=== PATIENT | female | born 1945 | race Caucasian/White ===

== ENCOUNTER 2016-10-25 00:57 | Inpatient (IN) | payer OTHER ==
[~2016-10-25] VITALS: Ht 154.9 cm; Wt 100.3 kg
[2016-10-25 02:04] LABS: EOSINOPHIL (%) 2.1 % (0-5); EOSINOPHIL COUNT 0.2 K/uL (0-0.3); HEMATOCRIT 38.8 % (36.0-46.0); IMMATURE GRANULOCYTE (%) 0.8 % (0.0-0.7); IMMATURE GRANULOCYTE COUNT 0.1 K/uL; INSTRUMENT ABS NEUTROPHIL CT 7.2 K/uL; MCH 27.2 PG (29.0-34.0); MCHC 32.2 G/DL (30.0-36.0); MCV 84.5 FL (83-99); MEAN PLAT.VOLUME 11.8 uM^3 (9.5-12.4); MONOCYTE (%) 4.9 % (3-12); MONOCYTE COUNT 0.5 K/uL (0-0.8); NEUTROPHIL (%) 72.2 % (45-76); NEUTROPHIL COUNT 7.2 K/uL (1.8-6.4); PLATELET COUNT 186 K/uL (156-360); RBC DIS.WIDTH-CV 14.3 % (11.8-14.6); RBC DIS.WIDTH-SD 44.2 % (39-53); RED BLOOD COUNT 4.59 M/uL (3.80-5.20)
[2016-10-25 02:17] LABS: ADD MIUA? YES; BILIRUBIN NEGATIVE; BLOOD SMALL; COLOR YELLOW ((YELLOW)); GLUCOSE (STRIP) NEGATIVE; KETONES NEGATIVE; LEUKOCYTES NEGATIVE; NITRITE NEGATIVE; PROTEIN (STRIP) NEGATIVE; SPECIFIC GRAVITY 1.014 (1.000-1.030); UROBILINOGEN 0.2 MG/DL (0.2-1.0)
[2016-10-25 02:18] LABS: AMYLASE 58 IU/L (1-118); CHLORIDE 99 mEq/L (99-109); POTASSIUM 3.9 mEq/L (3.7-5.4); SODIUM 137 mEq/L (136-147)
[2016-10-25 02:19] LABS: BACTERIA NONE SEEN /HPF; EPITHELIAL CELLS RARE /HPF; HYALINE CASTS 0-5 /LPF; MUCUS NONE SEEN /LPF; RED BLOOD CELLS 0-5 /HPF (0-5); UCUL ADDED? NO; WHITE BLOOD CELLS 0-5 /HPF (0-5)
[2016-10-25 02:20] LABS: GLUCOSE 120 mg/dL (70-99)
[2016-10-25 02:21] LABS: ANION GAP 12 MEQ/L (2-14)
[2016-10-25 02:23] LABS: AMPHETAMINE NEGATIVE (500 ng/mL); BARBITURATES NEGATIVE (200 ng/mL); BENZODIAZEPINES NEGATIVE (150 ng/mL); COCAINE NEGATIVE (150 ng/mL); INTERNAL CONTROLS VALID? YES; METHADONE NEGATIVE (200 ng/mL); METHAMPHETAMINE NEGATIVE (500 ng/mL); OPIATES (MORPHINE) NEGATIVE (100 ng/mL); OXYCODONE NEGATIVE (100 ng/mL); PHENCYCLIDINE NEGATIVE (25 ng/mL); PROPOXYPHENE NEGATIVE (300 ng/mL); THC CANNABINOIDS NEGATIVE (50 ng/mL); TRICYCLIC ANTIDEPRESSANTS NEGATIVE (300 ng/mL)
[2016-10-25 02:23] LABS: GFR ESTIMATE (CALCULATED) > 59 mL/min/; SERUM ETHYL ALCOHOL < 10 mg/dL
[2016-10-25 02:24] LABS: UREA NITROGEN (BUN) 33 mg/dL (9-23)
[2016-10-25 02:26] LABS: LIPASE 68 U/L (1.0-51.0)
[2016-10-25 05:45] VITALS: BP 99/55
[2016-10-25 07:52] VITALS: BP 101/55
[2016-10-25 11:54] VITALS: BP 101/59
[2016-10-25 12:48] LABS: POINT-OF-CARE METER ID UU14188577
[2016-10-25] MEDS ORDERED: ZESTRIL40 MG PO (14:30)
[2016-10-25] MEDS ORDERED: CRESTOR20 MG PO (14:30)
[2016-10-25] MEDS ORDERED: HYDROCHLOROTHIA25 MG PO (14:30)
[2016-10-25] MEDS ORDERED: GLUCOPHAGE500 MG PO (14:30)
[2016-10-25] MEDS ORDERED: VITAMIN B-12500 MC3 PO (14:31)
[2016-10-25] MEDS ORDERED: CALTRATE 600 +1 EAC1 PO (14:31)
[2016-10-25] MEDS ORDERED: LO-DOSE ASPIRIN81 M1 PO (14:31)
[2016-10-25] MEDS ORDERED: MULTI-VITAMIN1 EAC3 PO (14:32)
[2016-10-25 17:02] VITALS: BP 138/63
[2016-10-25 17:33] LABS: POINT-OF-CARE METER ID UU14149397
[2016-10-25 19:34] VITALS: BP 110/56
[2016-10-25 23:27] VITALS: BP 109/58
[2016-10-26] VITALS (8 sets, daily range): BP systolic 110–143; BP diastolic 58–66
[2016-10-26 21:54] LABS: POINT-OF-CARE METER ID UU14188577
[2016-10-27 05:46] LABS: ANION GAP 7 MEQ/L (2-14); CHLORIDE 104 MEQ/L (99-109); GFR ESTIMATE (CALCULATED) > 59 mL/min/; GLUCOSE 107 mg/dL (70-99); POTASSIUM 3.9 MEQ/L (3.7-5.4); SAMPLE HEMOLYSIS CHECK 0; SAMPLE ICTERIC CHECK 0; SAMPLE LIPEMIA CHECK 0; SODIUM 141 MEQ/L (136-147); UREA NITROGEN (BUN) 18 mg/dL (9-23)
[2016-10-27 06:12] LABS: HEMATOCRIT 32.8 % (36.0-46.0); MCH 26.8 PG (29.0-34.0); MCHC 30.8 G/DL (30.0-36.0); MEAN PLAT.VOLUME 12.2 uM^3 (9.5-12.4); PLATELET COUNT 155 K/uL (156-360); RBC DIS.WIDTH-CV 14.5 % (11.8-14.6); RBC DIS.WIDTH-SD 46.5 % (39-53); RED BLOOD COUNT 3.77 M/uL (3.80-5.20)
[2016-10-27 06:29] LABS: POINT-OF-CARE METER ID UU14188577
[2016-10-27 08:21] VITALS: BP 134/77
[2016-10-27] MEDS ORDERED: DUONEB 2.5-0.5 M3 ML AEROSOL (14:33)
[2016-10-27] MEDS ORDERED: HYDROCODON-ACE1 EAC7 PO (14:33)
[2016-10-27 16:46] VITALS: BP 115/66
[2016-10-28] MEDS ORDERED: LIPITOR40 MG PO (09:49)
== END 2016-10-27 17:45 | DRG 184 ==
LOC: EDOF → EME → EDBD 00:57 → EME 00:57 → EDOF 04:22 → 3EAST 04:22
PROVIDERS: Emergency Medicine; Thoracic Surgery (Cardiothoracic Vascular Surgery)
DX: S22.42XA Multiple fractures of ribs, left side, initial encounter for closed fracture (principal); W01.0XXA Fall on same level from slipping, tripping and stumbling without subsequent striking against object, initial encounter; S05.10XA Contusion of eyeball and orbital tissues, unspecified eye, initial encounter; E66.9 Obesity, unspecified; Z68.42 Body mass index [BMI] 45.0-49.9, adult; N28.89 Other specified disorders of kidney and ureter; E11.9 Type 2 diabetes mellitus without complications; I10 Essential (primary) hypertension; J44.9 Chronic obstructive pulmonary disease, unspecified; E78.5 Hyperlipidemia, unspecified; Z87.891 Personal history of nicotine dependence; I25.10 Atherosclerotic heart disease of native coronary artery without angina pectoris; E27.9 Disorder of adrenal gland, unspecified; Z68.41 Body mass index [BMI] 40.0-44.9, adult
CPT/HCPCS: 70450; 70486; 71260; 72125; 73110; 74177; 74183; 80048; 81003; 82150; 82533 91; 82565; 82948; 83690; 83835 90; 84520; 85025; 85027; 86870; 86900; 86901; 93005; 94640; 94640 76; 94760; 94799; 97530 GO; 99202; 99281; 99285; G0480; J1815; J2270; J2405; J7030; J7120

== ENCOUNTER 2016-10-27 11:20 | Inpatient (IN) | payer OTHER ==
[~2016-10-27] VITALS: Ht 154.9 cm; Wt 98.3 kg
[~2016-10-27 11:20] MED LIST: CALTRATE 600 +1 EAC1 PO; CRESTOR20 MG PO; GLUCOPHAGE500 MG PO; HYDROCHLOROTHIA25 MG PO; LO-DOSE ASPIRIN81 M1 PO; MULTI-VITAMIN1 EAC3 PO; VITAMIN B-12500 MC3 PO; ZESTRIL40 MG PO
[2016-10-27] MEDS ORDERED: DUONEB 2.5-0.5 M3 ML AEROSOL (14:33)
[2016-10-27] MEDS ORDERED: HYDROCODON-ACE1 EAC7 PO (14:33)
[2016-10-27 18:32] VITALS: BP 120/63
[2016-10-27 21:49] LABS: POINT-OF-CARE METER ID UU14174215
[2016-10-27 23:54] VITALS: BP 114/61
[2016-10-28 05:24] LABS: HEMATOCRIT 34.3 % (36.0-46.0); MCH 26.9 PG (29.0-34.0); MCHC 31.2 G/DL (30.0-36.0); MCV 86.2 FL (83-99); RBC DIS.WIDTH-CV 14.3 % (11.8-14.6); RBC DIS.WIDTH-SD 45.7 % (39-53); RED BLOOD COUNT 3.98 M/uL (3.80-5.20); WHITE BLOOD COUNT 6.9 K/uL (4.1-10.2)
[2016-10-28 05:50] VITALS: BP 120/59
[2016-10-28 05:52] LABS: ALKALINE PHOSPHATASE 48 IU/L (3-129); ANION GAP 6 MEQ/L (2-14); CHLORIDE 102 MEQ/L (99-109); GFR ESTIMATE (CALCULATED) > 59 mL/min/; GLUCOSE 130 mg/dL (70-99); POTASSIUM 4.3 MEQ/L (3.7-5.4); SAMPLE HEMOLYSIS CHECK 0; SAMPLE ICTERIC CHECK 0; SAMPLE LIPEMIA CHECK 0; SODIUM 141 MEQ/L (136-147); TOTAL BILIRUBIN 0.7 MG/DL (0.0-1.0); UREA NITROGEN (BUN) 21 mg/dL (9-23)
[2016-10-28 06:54] LABS: MEAN PLAT.VOLUME 11.8 uM^3 (9.5-12.4); PLAT.SUFFICIENCY ADEQUATE; PLATELET COUNT 160 K/uL (156-360)
[2016-10-28 07:20] LABS: POINT-OF-CARE METER ID UU13113720
[2016-10-28] MEDS ORDERED: LIPITOR40 MG PO (09:49)
[2016-10-28 11:09] LABS: POINT-OF-CARE METER ID UU14174215
[2016-10-28 16:05] VITALS: BP 113/62
[2016-10-28 16:25] LABS: POINT-OF-CARE METER ID UU14174215
[2016-10-28 21:37] LABS: POINT-OF-CARE METER ID UU13113720
[2016-10-29 05:30] VITALS: BP 122/61
[2016-10-29 06:49] LABS: POINT-OF-CARE METER ID UU13113720
[2016-10-29 11:19] LABS: POINT-OF-CARE METER ID UU13113712
[2016-10-29 15:50] VITALS: BP 120/65
[2016-10-29 16:37] LABS: POINT-OF-CARE METER ID UU13113720
[2016-10-29 21:28] LABS: POINT-OF-CARE METER ID UU14174215
[2016-10-30 05:11] VITALS: BP 133/63
[2016-10-30 06:54] LABS: POINT-OF-CARE METER ID UU13113720; POINT-OF-CARE USER ID ENVGAF
[2016-10-30 11:45] LABS: POINT-OF-CARE METER ID UU14174215; POINT-OF-CARE USER ID ENVGAF
[2016-10-30 14:56] VITALS: BP 121/60
[2016-10-30 16:36] LABS: POINT-OF-CARE METER ID UU13113720
[2016-10-30 22:07] LABS: POINT-OF-CARE METER ID UU13113720
[2016-10-31 05:24] VITALS: BP 143/67
[2016-10-31 08:02] LABS: POINT-OF-CARE METER ID UU13113720
[2016-10-31 12:07] LABS: POINT-OF-CARE METER ID UU13113720; POINT-OF-CARE USER ID AHSSSJB31
[2016-10-31 16:02] VITALS: BP 111/57
[2016-10-31 16:46] LABS: POINT-OF-CARE METER ID UU13113720
[2016-10-31 21:14] LABS: POINT-OF-CARE METER ID UU14174215
[2016-11-01 05:39] LABS: HEMATOCRIT 34.8 % (36.0-46.0); MCH 27.1 PG (29.0-34.0); MCHC 31.9 G/DL (30.0-36.0); MCV 84.9 FL (83-99); MEAN PLAT.VOLUME 12.3 uM^3 (9.5-12.4); PLATELET COUNT 189 K/uL (156-360); RBC DIS.WIDTH-CV 14.3 % (11.8-14.6); RBC DIS.WIDTH-SD 44.2 % (39-53); WHITE BLOOD COUNT 6.5 K/uL (4.1-10.2)
[2016-11-01 05:45] LABS: CHLORIDE 107 mEq/L (99-109); POTASSIUM 4.2 mEq/L (3.7-5.4); SODIUM 143 mEq/L (136-147)
[2016-11-01 05:47] LABS: GLUCOSE 111 mg/dL (70-99)
[2016-11-01 05:48] LABS: ANION GAP 9 MEQ/L (2-14)
[2016-11-01 05:49] LABS: TOTAL BILIRUBIN 0.5 mg/dL (0.0-1.0)
[2016-11-01 05:51] LABS: ALKALINE PHOSPHATASE 48 IU/L (3-129); GFR ESTIMATE (CALCULATED) > 59 mL/min/
[2016-11-01 05:52] LABS: UREA NITROGEN (BUN) 21 mg/dL (9-23)
[2016-11-01 06:40] VITALS: BP 125/64
[2016-11-01 08:06] LABS: POINT-OF-CARE METER ID UU14174215; POINT-OF-CARE USER ID AHSSSJB31
[2016-11-01 12:15] LABS: POINT-OF-CARE METER ID UU14174215; POINT-OF-CARE USER ID AHSSSJB31
[2016-11-01 15:40] VITALS: BP 121/63
[2016-11-01 16:33] LABS: POINT-OF-CARE METER ID UU13113720
[2016-11-01 21:28] LABS: POINT-OF-CARE METER ID UU14174215
[2016-11-02 05:11] VITALS: BP 125/58
[2016-11-02 08:22] LABS: POINT-OF-CARE METER ID UU14174215; POINT-OF-CARE USER ID AHSSSJB31
[2016-11-02 11:41] LABS: POINT-OF-CARE METER ID UU14174215; POINT-OF-CARE USER ID AHSSSJB31
== END 2016-11-02 14:20 | disposition home health service (06) | DRG 945 ==
LOC: 3WEST 11:20
PROVIDERS: Physical Medicine & Rehabilitation Pain Medicine
PROC: F07M7ZZ Manual Therapy Techniques Treatment of Musculoskeletal System - Whole Body (ICD-10-PCS; principal; 2016-10-27)
DX: R53.1 Weakness (principal); Z74.09 Other reduced mobility; S22.42XD Multiple fractures of ribs, left side, subsequent encounter for fracture with routine healing; S02.2XXD Fracture of nasal bones, subsequent encounter for fracture with routine healing; S00.83XD Contusion of other part of head, subsequent encounter; W18.30XD Fall on same level, unspecified, subsequent encounter; R58 Hemorrhage, not elsewhere classified; J44.9 Chronic obstructive pulmonary disease, unspecified; N28.1 Cyst of kidney, acquired; C64.1 Malignant neoplasm of right kidney, except renal pelvis; E11.9 Type 2 diabetes mellitus without complications; E78.5 Hyperlipidemia, unspecified; D35.01 Benign neoplasm of right adrenal gland; N20.0 Calculus of kidney; G31.9 Degenerative disease of nervous system, unspecified; K44.9 Diaphragmatic hernia without obstruction or gangrene; N28.89 Other specified disorders of kidney and ureter; K80.20 Calculus of gallbladder without cholecystitis without obstruction; K43.9 Ventral hernia without obstruction or gangrene; K57.30 Diverticulosis of large intestine without perforation or abscess without bleeding; D64.9 Anemia, unspecified; Z60.2 Problems related to living alone; Z91.81 History of falling; Z87.891 Personal history of nicotine dependence
CPT/HCPCS: 80053; 82948; 85027; 97110 GO; 97530 GP; J1650; J1815

== ENCOUNTER → 2016-12-14 | Outpatient (CLI) | payer MEDICARE, OTHER ==
[~2016-12-14] MED LIST changes: +DUONEB 2.5-0.5 M3 ML AEROSOL; +HYDROCODON-ACE1 EAC7 PO; +LIPITOR40 MG PO
== END | disposition home or self-care (01) ==
LOC: CDC 08:54
DX: N28.89 Other specified disorders of kidney and ureter (principal)
CPT/HCPCS: 93000

== ENCOUNTER 2016-12-18 05:27 | Inpatient (IN) | payer OTHER ==
[~2016-12-18] VITALS: Ht 152.4 cm; Wt 95.2 kg
[2016-12-18 06:01] VITALS: BP 161/89
[2016-12-18 06:21] LABS: POINT-OF-CARE METER ID UU13113694
[2016-12-18 09:55] LABS: POINT-OF-CARE METER ID UU13113675
[2016-12-18 11:15] VITALS: BP 128/58
[2016-12-18 12:04] LABS: POINT-OF-CARE METER ID UU13113725
[2016-12-18 15:15] VITALS: BP 129/61
[2016-12-18 16:17] LABS: POINT-OF-CARE METER ID UU13113725
[2016-12-18 19:25] VITALS: BP 130/58
[2016-12-18 23:16] VITALS: BP 124/58
[2016-12-19 03:30] VITALS: BP 149/67
[2016-12-19 05:45] LABS: POINT-OF-CARE METER ID UU13113725
[2016-12-19 06:24] LABS: HEMATOCRIT 32.9 % (36.0-46.0); MCHC 31.9 G/DL (30.0-36.0); MCV 84.6 FL (83-99); PLATELET COUNT 150 K/uL (156-360); RBC DIS.WIDTH-CV 14.6 % (11.8-14.6); RBC DIS.WIDTH-SD 45.1 % (39-53); RED BLOOD COUNT 3.89 M/uL (3.80-5.20); WHITE BLOOD COUNT 8.7 K/uL (4.1-10.2)
[2016-12-19 06:45] LABS: ANION GAP 7 MEQ/L (2-14); CHLORIDE 107 MEQ/L (99-109); GFR ESTIMATE (CALCULATED) 58 mL/min/; GLUCOSE 116 mg/dL (70-99); POTASSIUM 4.2 MEQ/L (3.7-5.4); SAMPLE HEMOLYSIS CHECK 0; SAMPLE ICTERIC CHECK 0; SAMPLE LIPEMIA CHECK 0; SODIUM 141 MEQ/L (136-147); UREA NITROGEN (BUN) 17 mg/dL (9-23)
[2016-12-19 07:59] VITALS: BP 140/65
[2016-12-19 12:00] VITALS: BP 128/60
[2016-12-19 16:00] VITALS: BP 147/70
[2016-12-19 17:05] LABS: POINT-OF-CARE METER ID UU13113725
[2016-12-19 19:30] VITALS: BP 121/58
[2016-12-19 23:03] VITALS: BP 132/69
[2016-12-20 03:00] VITALS: BP 168/81
[2016-12-20 06:02] LABS: HEMATOCRIT 33.9 % (36.0-46.0); MCH 26.4 PG (29.0-34.0); MCHC 31.6 G/DL (30.0-36.0); MCV 83.7 FL (83-99); RBC DIS.WIDTH-CV 14.6 % (11.8-14.6); RBC DIS.WIDTH-SD 44.4 % (39-53); RED BLOOD COUNT 4.05 M/uL (3.80-5.20); WHITE BLOOD COUNT 9.8 K/uL (4.1-10.2)
[2016-12-20 06:41] LABS: ANION GAP 8 MEQ/L (2-14); CHLORIDE 101 MEQ/L (99-109); GFR ESTIMATE (CALCULATED) > 59 mL/min/; GLUCOSE 122 mg/dL (70-99); POTASSIUM 4.1 MEQ/L (3.7-5.4); SAMPLE HEMOLYSIS CHECK 0; SAMPLE ICTERIC CHECK 0; SAMPLE LIPEMIA CHECK 0; SODIUM 136 MEQ/L (136-147); UREA NITROGEN (BUN) 12 mg/dL (9-23)
[2016-12-20 06:53] LABS: MEAN PLAT.VOLUME 12.5 uM^3 (9.5-12.4); PLAT.SUFFICIENCY ADEQUATE; PLATELET COUNT 149 K/uL (156-360)
[2016-12-20 08:43] VITALS: BP 185/90
[2016-12-20 09:02] VITALS: BP 141/73
[2016-12-20 16:18] VITALS: BP 139/74
[2016-12-20 23:25] VITALS: BP 158/74
[2016-12-21 06:28] LABS: POINT-OF-CARE METER ID UU13113725
[2016-12-21 07:21] VITALS: BP 163/82
[2016-12-21 11:22] VITALS: BP 151/69
[2016-12-21] MEDS ORDERED: NORCO 5/3251 TABLET PO (12:33)
== END 2016-12-21 13:13 | DRG 657 ==
LOC: 2SOUTH → 5EAST 05:27 → 2SOUTH 05:27 → 5EAST 10:57 → 2SOUTH 11:28 → 5EAST 12-21 13:13
PROVIDERS: Student in an Organized Health Care Education/Training Program; Urology
PROC: 0TT00ZZ Resection of Right Kidney, Open Approach (ICD-10-PCS; principal; 2016-12-18)
DX: C64.1 Malignant neoplasm of right kidney, except renal pelvis (principal); Z68.41 Body mass index [BMI] 40.0-44.9, adult; N28.89 Other specified disorders of kidney and ureter; E27.8 Other specified disorders of adrenal gland; I10 Essential (primary) hypertension; Z87.891 Personal history of nicotine dependence; Z82.49 Family history of ischemic heart disease and other diseases of the circulatory system; Z83.3 Family history of diabetes mellitus
CPT/HCPCS: 36415; 80048; 81003; 82948; 85025; 85027; 86900; 86901; 88307; 88342 TC; 94799; J0330; J0692; J1100; J1170; J1815; J2405; J2710; J2765; J3010; J7050; J7120

== ENCOUNTER 2016-12-21 10:49 | Inpatient (IN) | payer OTHER ==
[~2016-12-21] VITALS: Ht 152.4 cm; Wt 100.0 kg
[2016-12-21] MEDS ORDERED: NORCO 5/3251 TABLET PO (12:33)
[2016-12-21 14:45] VITALS: BP 142/72
[2016-12-21 15:53] VITALS: BP 150/76
[2016-12-21 16:38] LABS: POINT-OF-CARE METER ID UU13113720
[2016-12-21 21:23] LABS: POINT-OF-CARE METER ID UU14174215
[2016-12-22 04:33] VITALS: BP 153/75
[2016-12-22 06:40] LABS: HEMATOCRIT 31.6 % (36.0-46.0); MCH 25.9 PG (29.0-34.0); MCV 83.6 FL (83-99); PLATELET COUNT 161 K/uL (156-360); RBC DIS.WIDTH-CV 14.8 % (11.8-14.6); RBC DIS.WIDTH-SD 45.1 % (39-53); RED BLOOD COUNT 3.78 M/uL (3.80-5.20); WHITE BLOOD COUNT 6.2 K/uL (4.1-10.2)
[2016-12-22 07:04] LABS: ALKALINE PHOSPHATASE 50 IU/L (3-129); ANION GAP 7 MEQ/L (2-14); CHLORIDE 104 MEQ/L (99-109); GFR ESTIMATE (CALCULATED) 58 mL/min/; GLUCOSE 110 mg/dL (70-99); POTASSIUM 4.4 MEQ/L (3.7-5.4); SAMPLE HEMOLYSIS CHECK 0; SAMPLE ICTERIC CHECK 0; SAMPLE LIPEMIA CHECK 0; SODIUM 142 MEQ/L (136-147); TOTAL BILIRUBIN 0.7 MG/DL (0.0-1.0); UREA NITROGEN (BUN) 20 mg/dL (9-23)
[2016-12-22 12:17] LABS: POINT-OF-CARE METER ID UU13113720
[2016-12-22 15:45] VITALS: BP 147/71
[2016-12-22 16:35] LABS: POINT-OF-CARE METER ID UU13113720
[2016-12-22 21:21] LABS: POINT-OF-CARE METER ID UU13113720
[2016-12-23 05:14] VITALS: BP 147/73
[2016-12-23 06:59] LABS: POINT-OF-CARE METER ID UU13113720; POINT-OF-CARE USER ID AHSSSJB31
[2016-12-23 12:10] LABS: POINT-OF-CARE METER ID UU13113720; POINT-OF-CARE USER ID AHSSSJB31
[2016-12-23 15:51] VITALS: BP 136/75
[2016-12-23 16:43] LABS: POINT-OF-CARE METER ID UU13113720
[2016-12-23 21:22] LABS: POINT-OF-CARE METER ID UU14174215
[2016-12-24 05:29] VITALS: BP 146/69
[2016-12-24 06:49] LABS: POINT-OF-CARE METER ID UU13113720
[2016-12-24 12:07] LABS: POINT-OF-CARE METER ID UU13113720; POINT-OF-CARE USER ID ENVGAF
[2016-12-24 16:00] VITALS: BP 148/70
[2016-12-24 16:36] LABS: POINT-OF-CARE METER ID UU14174215
[2016-12-24 21:06] LABS: POINT-OF-CARE METER ID UU13113720
[2016-12-25 05:02] VITALS: BP 144/76
[2016-12-25 06:37] LABS: POINT-OF-CARE METER ID UU13113720; POINT-OF-CARE USER ID ENVGAF
[2016-12-25 07:26] LABS: HEMATOCRIT 33.6 % (36.0-46.0); MCHC 32.4 G/DL (30.0-36.0); MCV 83.4 FL (83-99); MEAN PLAT.VOLUME 11.6 uM^3 (9.5-12.4); PLATELET COUNT 243 K/uL (156-360); RBC DIS.WIDTH-CV 14.9 % (11.8-14.6); RBC DIS.WIDTH-SD 45.1 % (39-53); RED BLOOD COUNT 4.03 M/uL (3.80-5.20); WHITE BLOOD COUNT 7.5 K/uL (4.1-10.2)
[2016-12-25 07:41] LABS: ANION GAP 7 MEQ/L (2-14); CHLORIDE 104 MEQ/L (99-109); GFR ESTIMATE (CALCULATED) 52 mL/min/; GLUCOSE 114 mg/dL (70-99); POTASSIUM 4.5 MEQ/L (3.7-5.4); SAMPLE HEMOLYSIS CHECK 0; SAMPLE ICTERIC CHECK 0; SAMPLE LIPEMIA CHECK 0; SODIUM 142 MEQ/L (136-147); UREA NITROGEN (BUN) 27 mg/dL (9-23)
[2016-12-25 11:44] LABS: POINT-OF-CARE METER ID UU13113720; POINT-OF-CARE USER ID AHSSSJB31
[2016-12-25 15:16] VITALS: BP 129/62
[2016-12-25 16:22] LABS: POINT-OF-CARE METER ID UU14174215
[2016-12-25 21:26] LABS: POINT-OF-CARE METER ID UU13113720
[2016-12-26 04:37] VITALS: BP 131/71
[2016-12-26 07:40] LABS: POINT-OF-CARE METER ID UU14174215
[2016-12-26 11:39] LABS: POINT-OF-CARE METER ID UU14174215
== END 2016-12-26 14:38 | disposition home health service (06) | DRG 92 ==
LOC: 3WEST 10:49
PROVIDERS: Physical Medicine & Rehabilitation Pain Medicine
PROC: F07M3ZZ Motor Function Treatment of Musculoskeletal System - Whole Body (ICD-10-PCS; principal; 2016-12-21)
DX: R26.9 Unspecified abnormalities of gait and mobility (principal); S02.2XXA Fracture of nasal bones, initial encounter for closed fracture; S00.83XA Contusion of other part of head, initial encounter; S22.49XA Multiple fractures of ribs, unspecified side, initial encounter for closed fracture; C64.1 Malignant neoplasm of right kidney, except renal pelvis; G89.18 Other acute postprocedural pain; Z68.41 Body mass index [BMI] 40.0-44.9, adult; D35.01 Benign neoplasm of right adrenal gland; E11.9 Type 2 diabetes mellitus without complications; I10 Essential (primary) hypertension; J44.9 Chronic obstructive pulmonary disease, unspecified; E78.5 Hyperlipidemia, unspecified; Z90.5 Acquired absence of kidney; Z87.891 Personal history of nicotine dependence; Z87.442 Personal history of urinary calculi
CPT/HCPCS: 80048; 80053; 82948; 85027; 97110 GO; J1650; J1815

== ENCOUNTER → 2017-08-10 | Outpatient (CLI) | payer OTHER ==
[~2017-08-10] MED LIST changes: +NORCO 5/3251 TABLET PO
== END | disposition home or self-care (01) ==
DX: M17.12 Unilateral primary osteoarthritis, left knee (principal); R26.2 Difficulty in walking, not elsewhere classified; M25.562 Pain in left knee; M25.662 Stiffness of left knee, not elsewhere classified; M62.81 Muscle weakness (generalized); Z74.1 Need for assistance with personal care
CPT/HCPCS: 97161 GP; 97165 GO; 97530 GP; 97535 GO; G8978 GP; G8979 GP; G8980 GP; G8987 GO; G8988 GO; G8989 GO

== ENCOUNTER 2017-08-29 21:27 | Inpatient (IN) | payer OTHER ==
[~2017-08-29] VITALS: Ht 165.1 cm; Wt 94.7 kg
[~2017-08-29 21:27] MED LIST changes: +KENALOG,ARISTOC80 GM TP; +PROLIA60 MG/1 ML SC
[2017-08-30 09:56] VITALS: BP 148/73
[2017-08-30 15:35] LABS: HEMATOCRIT 29.9 % (36.0-46.0); HEMOGLOBIN 8.9 G/DL (11.9-15.5); MCH 23.9 PG (29.0-34.0); MCHC 29.8 G/DL (30.0-36.0); MCV 80.2 FL (83-99); PLATELET COUNT 185 K/uL (156-360); RBC DIS.WIDTH-CV 16.2 % (11.8-14.6); RBC DIS.WIDTH-SD 47.1 % (39-53); RED BLOOD COUNT 3.73 M/uL (3.80-5.20); WHITE BLOOD COUNT 6.7 K/uL (4.1-10.2)
[2017-08-30 16:25] VITALS: BP 132/62
[2017-08-30 20:34] VITALS: BP 131/72
[2017-08-31] VITALS: BP 139/60
[2017-08-31 04:10] VITALS: BP 135/74
[2017-08-31 05:44] LABS: HEMATOCRIT 29.3 % (36.0-46.0); HEMOGLOBIN 8.6 G/DL (11.9-15.5); MCV 80.5 FL (83-99)
[2017-08-31 06:10] LABS: CHLORIDE 109 MEQ/L (99-109); GFR ESTIMATE (CALCULATED) 58 mL/min/; GLUCOSE 132 mg/dL (70-99); POTASSIUM 5.1 MEQ/L (3.7-5.4); SODIUM 140 MEQ/L (136-147); UREA NITROGEN (BUN) 24 mg/dL (9-23)
[2017-08-31 08:13] VITALS: BP 143/70
[2017-08-31 12:00] VITALS: BP 162/74
[2017-08-31 15:31] VITALS: BP 150/67
[2017-08-31 20:10] VITALS: BP 171/80
[2017-09-01] VITALS (7 sets, daily range): BP systolic 134–183; BP diastolic 67–86
[2017-09-01 04:55] LABS: HEMATOCRIT 27.5 % (36.0-46.0); HEMOGLOBIN 8.5 G/DL (11.9-15.5); MCV 78.1 FL (83-99)
[2017-09-02 04:19] VITALS: BP 176/88
[2017-09-02 05:22] LABS: HEMATOCRIT 27.5 % (36.0-46.0); HEMOGLOBIN 8.6 G/DL (11.9-15.5); MCV 78.6 FL (83-99)
[2017-09-02] MEDS ORDERED: DOCUSATE SODIU100 MG PO (08:20)
[2017-09-02] MEDS ORDERED: LOVENOX40 MG/0.4 SC (08:21)
[2017-09-02] MEDS ORDERED: ENDOCET 5-3251 EACH PO (08:21)
[2017-09-02 09:43] VITALS: BP 136/63
== END 2017-09-02 10:42 | DRG 470 ==
LOC: ENRESERV 21:27 → 3WEST 08-30 09:06 → 2SOUTH 08-30 09:06 → 3WEST 08-30 16:08
PROVIDERS: Orthopaedic Surgery; Physician Assistant
PROC: 0SRD0J9 Replacement of Left Knee Joint with Synthetic Substitute, Cemented, Open Approach (ICD-10-PCS; principal; 2017-08-30)
DX: M17.12 Unilateral primary osteoarthritis, left knee (principal); I10 Essential (primary) hypertension; E78.00 Pure hypercholesterolemia, unspecified; E11.9 Type 2 diabetes mellitus without complications; E55.9 Vitamin D deficiency, unspecified; E66.01 Morbid (severe) obesity due to excess calories; Z68.34 Body mass index [BMI] 34.0-34.9, adult; Z85.528 Personal history of other malignant neoplasm of kidney; Z90.5 Acquired absence of kidney; Z87.891 Personal history of nicotine dependence; Z85.828 Personal history of other malignant neoplasm of skin; Z79.84 Long term (current) use of oral hypoglycemic drugs; Z79.82 Long term (current) use of aspirin
CPT/HCPCS: 71045; 73560; 80048; 82948; 85014; 85018; 85027; C1713; J0690; J1650; J1815; J2250; J2795; J3010; J7050

== ENCOUNTER 2018-02-07 21:01 | Inpatient (IN) | payer OTHER ==
[~2018-02-07] VITALS: Ht 152.4 cm; Wt 105.0 kg
[~2018-02-07 21:01] MED LIST changes: +DOCUSATE SODIU100 MG PO; +ENDOCET 5-3251 EACH PO; +FEOSOL325 MG PO; +LOVENOX40 MG/0.4 SC
[2018-02-08 06:42] VITALS: BP 151/78
[2018-02-08 10:36] LABS: HEMATOCRIT 37.6 % (36.0-46.0); HEMOGLOBIN 11.1 G/DL (11.9-15.5); MCH 24.2 PG (29.0-34.0); MCHC 29.5 G/DL (30.0-36.0); MCV 82.1 FL (83-99); PLATELET COUNT 166 K/uL (156-360); RBC DIS.WIDTH-CV 23.7 % (11.8-14.6); RBC DIS.WIDTH-SD 68.6 % (39-53); RED BLOOD COUNT 4.58 M/uL (3.80-5.20); WHITE BLOOD COUNT 12.6 K/uL (4.1-10.2)
[2018-02-08 12:43] VITALS: BP 140/76
[2018-02-08 15:56] VITALS: BP 182/83
[2018-02-08 16:18] VITALS: BP 158/78
[2018-02-08 20:11] VITALS: BP 161/74
[2018-02-08 23:48] VITALS: BP 146/65
[2018-02-09 04:30] VITALS: BP 147/65
[2018-02-09 06:21] LABS: HEMATOCRIT 32.6 % (36.0-46.0); HEMOGLOBIN 9.9 G/DL (11.9-15.5); MCV 80.1 FL (83-99)
[2018-02-09 06:43] LABS: CHLORIDE 105 MEQ/L (99-109); CREATININE 0.9 MG/DL (0.6-1.3); GFR ESTIMATE (CALCULATED) > 59 mL/min/; GLUCOSE 171 mg/dL (70-99); POTASSIUM 3.9 MEQ/L (3.7-5.4); SODIUM 138 MEQ/L (136-147); UREA NITROGEN (BUN) 16 mg/dL (9-23)
[2018-02-09 08:23] VITALS: BP 145/62
[2018-02-09] MEDS ORDERED: OXYCODONE HCL5 MG PO (08:37)
[2018-02-09] MEDS ORDERED: LOVENOX40 MG/0.4 SC (08:37)
[2018-02-09] MEDS ORDERED: OXYCONTIN10 MG PO (08:37)
[2018-02-09 11:30] VITALS: BP 134/61
[2018-02-09 15:41] VITALS: BP 146/70
[2018-02-09 20:08] VITALS: BP 151/73
[2018-02-10] VITALS (7 sets, daily range): BP systolic 105–136; BP diastolic 52–69
[2018-02-10 06:02] LABS: HEMATOCRIT 33.4 % (36.0-46.0); MCV 80.7 FL (83-99)
[2018-02-11 09:07] VITALS: BP 127/65
== END 2018-02-11 13:23 | DRG 470 ==
LOC: ENRESERV 21:01 → CANRESERV 21:01 → 2SOUTH 02-08 05:08 → 3WEST 02-08 05:35 → ENRESERV 02-08 07:02 → 2SOUTH 02-08 09:19 → ENRESERV 02-08 10:07 → 3WEST 02-08 12:17 → 2SOUTH 02-08 13:09 → 3WEST 02-10 07:11 → ENRESERV 02-10 07:13 → 3EAST 02-10 12:57
PROVIDERS: Orthopaedic Surgery
PROC: 0SRC0J9 Replacement of Right Knee Joint with Synthetic Substitute, Cemented, Open Approach (ICD-10-PCS; principal; 2018-02-08)
DX: M17.11 Unilateral primary osteoarthritis, right knee (principal); E11.9 Type 2 diabetes mellitus without complications; E78.00 Pure hypercholesterolemia, unspecified; Z96.652 Presence of left artificial knee joint
CPT/HCPCS: 36415; 71045; 73560; 80048; 80053; 80061; 82043; 82570; 82728; 82948; 83036; 83540; 84443; 84466; 85014; 85018; 85025; 85027; 97530 GP; C1713; J0690; J1170; J1650; J2250; J2405; J2795; J7030; J7050; S0020